=== PATIENT | male | born 1950 | race Caucasian/White ===

== ENCOUNTER 2016-08-11 06:04 | Day surgery (SDC) | payer OTHER ==
[~2016-08-11] VITALS: Ht 182.9 cm; Wt 97.5 kg
[2016-08-11] MEDS ORDERED: ceFAZolin 1GM/50ML D5W 50 ML IV ONE (06:49)
[2016-08-11] MEDS ORDERED: TETRACAINE 1% INJ 2 ML VIAL IJ ONE ×2 (06:56→06:59)
[2016-08-11] MEDS ORDERED: fentaNYL CITRATE 100 MCG/2 ML VL ONE (07:05)
[2016-08-11] MEDS ORDERED: ONDANSETRON HCL 4 MG/2 ML VIAL ONE (07:05)
[2016-08-11] MEDS ORDERED: PROPOFOL 10 MG/ML 20 ML IV ONE (07:05)
[2016-08-11] MEDS ORDERED: SODIUM CHLORIDE LOCK 20 ML ONE (07:05)
[2016-08-11] MEDS ORDERED: MIDAZOLAM HCL 1MG/1ML-2 ML VIAL ONE (07:05)
[2016-08-11] MEDS ORDERED: PROMETHAZINE HCL 25 MG/ML 1ML IM ONE (08:15)
[2016-08-11] MEDS ORDERED: HYDROmorphone HCL 2 MG/ML VL IV PRN (08:15)
[2016-08-11] MEDS ORDERED: KETOROLAC TROMETH 30 MG/ML 1ML VIAL IV ONE (08:15)
[2016-08-11] MEDS ORDERED: IPRATROPIUM BROM 0.5 MG/2.5ML INH SOL ONE (09:47)
[2016-08-11] MEDS ORDERED: ALBUTEROL SULF 2.5 MG/0.5ML(0.5%) NEB SOLN ONE (09:47)
[2016-08-11] MEDS ORDERED: ALBUTEROL SULF 2.5 MG/0.5ML(0.5%) NEB SOLN NEB ONE (10:00)
[2016-08-11] MEDS ORDERED: IPRATROPIUM BROM 0.5 MG/2.5ML INH SOL NEB ONE (10:00)
[2016-08-11 16:15] VITALS: BP 152/84
== END 2016-08-11 16:36 | disposition home or self-care (01) ==
LOC: SUR 06:04
PROVIDERS: ATTEND Urology
DX: N40.1 Benign prostatic hyperplasia with lower urinary tract symptoms (principal); N32.0 Bladder-neck obstruction; H40.9 Unspecified glaucoma; F17.200 Nicotine dependence, unspecified, uncomplicated
CPT/HCPCS: 52601; 71010; 88305; 94640; J0690; J2250; J2405; J2704; J3010